=== PATIENT | female | born 1940 | race Two or more races ===

== ENCOUNTER 2024-07-18 15:22 | Outpatient (CLI) | payer OTHER ==
[~2024-07-18 15:22] MED LIST: COZAAR50 MG; GLUMETZA500 MG
== END 2024-07-18 15:31 | disposition home or self-care (01) ==
LOC: RAD 15:22
PROVIDERS: ATTEND Specialist
DX: J45.998 Other asthma (principal); J32.9 Chronic sinusitis, unspecified

== ENCOUNTER 2024-09-12 10:36 | Emergency (ER) | payer OTHER ==
[~2024-09-12] VITALS: Ht 160 cm; Wt 70.3 kg
[2024-09-12 11:20] VITALS: BP 119/53; O2SAT 100
[2024-09-12] MEDS ORDERED: TUSNEL LIQUID178 ML PO (14:21)
[2024-09-12] MEDS ORDERED: SINGULAIR10 MG PO (14:21)
== END 2024-09-12 14:44 | disposition home or self-care (01) ==
LOC: ER 10:36
DX: R05.9 Cough, unspecified (principal); I10 Essential (primary) hypertension; E11.9 Type 2 diabetes mellitus without complications; Z79.84 Long term (current) use of oral hypoglycemic drugs; Z88.2 Allergy status to sulfonamides

== ENCOUNTER 2024-10-11 08:47 | Outpatient (CLI) | payer OTHER ==
[~2024-10-11 08:47] MED LIST changes: +SINGULAIR10 MG PO; +TUSNEL LIQUID178 ML PO
== END 2024-10-11 09:05 | disposition home or self-care (01) ==
LOC: MRI 08:47
PROVIDERS: ATTEND Orthopaedic Surgery
DX: S83.241A Other tear of medial meniscus, current injury, right knee, initial encounter (principal)
CPT/HCPCS: 73721